=== PATIENT | female | born 1940 | race African-American/Black ===

== ENCOUNTER 2023-08-18 15:05 | Outpatient (AMB) | payer MEDICARE, OTHER, SELFPAY ==
[2023-08-18 15:13] VITALS: RESP 12; BMI 26.2
--- NOTE | 2023-08-18 15:13 | A.OFFVIS_ITS ---
Intake Vital Signs 08/18/23 15:13 Height 5 ft 2 in Weight 143 lb BMI 26.2 Blood Pressure Location Lt brachial Position Sitting Respiration 12 Pulse Source Pulse Oximeter Intake Visit Reasons: Neck, shoulder pain w/ numbness and tingling/LMOVM Allergies Sulfa (Sulfonamide Antibiotics) Allergy (Severe, Verified 08/18/23 15:15) burning Medication List - Last Reconciled 08/18/23 by Bernie Fields LPN albuterol sulfate 90 mcg/actuation 2 puffs inhalation Q4H PRN aspirin 81 mg PO DAILY atorvastatin 20 mg PO DAILY cholecalciferol (vitamin D3) 25 mcg PO DAILY fluticasone propionate 50 mcg/actuation 1 - 2 sprays intranasal DAILY hydroxyzine HCl 10 mg PO BEDTIME metoprolol succinate ER 25 mg PO DAILY HPI HPI Comments History of Present Illness Details Melissa is very pleasant 83 years old female who presents in my office with complains on numbness and tingling sensation in the right hand, she reports that she needs to shake her right hand of 10 to alleviate these unpleasant sensation, she also reports that her bilateral shoulder hurts. Reports that in the past she was receiving shoulder injections in [facility]. She received those injections with moderate improvement. She also stated that she had EMG on the right side in [facility] however in our records would not have any EMG reports available. She reports that she cannot sleep normally because of this pain she can not do activities of daily living she can take care of herself and she can not function normally however she needs to do it is low. She is working part-time as the school molding line assistant. She reports that heat applications and weather changes aggravate her pain. She reports that nothing alleviate her pain. She reports that most severe pain she feels at night. Hot burning sensation tingling sensation and stinging sensation is most of the tissue damage she reports. She received physical therapy and acupuncture to treat her pain in the past. She received multiple images of her shoulders but they are not available for us. Her past medical history significant for history of heart murmur arthritis and history of asthma. She did not have any surgeries in the past. She denies smoking cigarettes drinking alcohol she denies recreational drugs. Review of Systems Const All systems reviewed & are unremarkable except as noted in HPI and below ENT Reports Normal hearing present Neuro Reports Normal hearing present, Denies Abnormal speech present, Denies confusion and Denies Sensory deficit (Neuro) Psych Denies confusion Physical Exam Vital Signs: Last Vital Signs Resp 12 08/18/23 15:13 BMI result Body Mass Index 26.2 Const General: no acute distress; No confusion Orientation/consciousness: patient oriented x3 and No confusion Eyes General: appearance normal, both eyes and all related structures Pupils: Equal, round and reactive pupils present EOM: EOMs intact bilaterally Neck Other: No tenderness of palpation paraspinal spinal region of the cervical spine. Minor tenderness on palpation bilateral shoulders. Phalen test aggravates her pain. Reverse Phalen test does not alleviate her pain. Neck: Yes full ROM Chest Chest palpation & inspection: normal inspection of the chest Resp Effort & Inspection: normal respiratory effort, able to speak in complete sentences, normal respiratory pattern, no audible wheezes and no cough Cardio Jugular venous distension: no JVD GI Inspection: Yes normal to inspection Neuro General: patient oriented x3, gait normal and No confusion Cranial nerves: Yes CN's II-XII intact bilaterally, Yes Equal, round and reactive pupils present, Yes Normal hearing present and Yes Ability to bilaterally elevate shoulders present Speech: No Abnormal speech present Gait exam (Neuro): Normal gait present Motor exam (neuro): 5/5 motor strength present throughout Sensory Exam: No Sensory deficit (Neuro) Extrem General: No pedal edema Psych Speech and movement: Normal speech and movement present Affect: normal affect Attitude: cooperative Thought process: Normal thought process present Thought content: Normal thought content present Insight: Good insight present (Psych) Judgement: Good judgement present (Psych) Assessment & Plan Assessment & Plan (1) Carpal tunnel syndrome of right wrist: Code(s): G56.01 - Carpal tunnel syndrome, right upper limb (2) Osteoarthritis of shoulder region: Code(s): M19.019 - Primary osteoarthritis, unspecified shoulder (3) Chronic pain syndrome: Code(s): G89.4 - Chronic pain syndrome Plan: Plan I explained to the patient today that the I need EMG to make a conclusion about her condition. It sounds like she had an EMG in the past and she states that it was done in [facility]. I do not have direct axis to Dr. Kellogg and Dr. Ahmadi's office. Will try to investigate in the future. I also would like to obtain x-rays she received her shoulders. If her x-rays are positive for shoulder osteoarthritis I may offer her intra-articular shoulder steroid injections. If my suspicion of carpal tunnel is justified she needs to go for the carpal tunnel surgery. Coding Level of Care Code New Pt Level 3 (91601) Diagnoses Carpal tunnel syndrome of right wrist G56.01 Osteoarthritis of shoulder region M19.019 Chronic pain syndrome G89.4
== END 2023-08-18 15:36 | disposition home or self-care (01) ==
PROVIDERS: PCP Nurse Practitioner; Referring Provider Nurse Practitioner; Visit Provider Anesthesiology
DX: G89.4 Chronic pain syndrome (principal); G56.01 Carpal tunnel syndrome, right upper limb; M19.019 Primary osteoarthritis, unspecified shoulder
CPT/HCPCS: 99203

== ENCOUNTER → 2023-08-18 15:05 | Outpatient (BNVA) | payer OTHER, MEDICARE, SELFPAY | PROVIDERS: PCP Nurse Practitioner; Referring Provider Nurse Practitioner; Visit Provider Anesthesiology | DX: G89.4 Chronic pain syndrome (principal); G56.01 Carpal tunnel syndrome, right upper limb; M19.019 Primary osteoarthritis, unspecified shoulder | CPT/HCPCS: 99202 ==